=== PATIENT | male | born 1990 | race African-American/Black ===

== ENCOUNTER 2017-12-21 00:04 | Inpatient (IN) ==
[2017-12-21] MEDS ORDERED: SODIUM CHLORIDE 0.9% 500 ML IV STA (00:43)
[2017-12-21] MEDS ORDERED: cefTRIAXone 1,000 MG in SODIUM CHLORIDE 0.9% 100 ML IV STA (00:43)
[2017-12-21] MEDS ORDERED: MORPHINE 2 MG/1 ML SYRINGE IV STA (00:43)
[2017-12-21] MEDS ORDERED: ONDANSETRON ODT 4 MG TABLET PO STA (00:43)
[2017-12-21] MEDS ORDERED: ASPIRIN 325 MG TABLET PO STA (00:43)
[2017-12-21] MEDS ORDERED: ONDANSETRON ODT 4 MG TABLET PO ONE (01:07)
[2017-12-21] MEDS: ALBUTEROL 2.5 MG/3 ML NEB RESP TX SCH ×3 (01:27→02:07)
[2017-12-21] MEDS ORDERED: cefTRIAXone 1,000 MG VIAL ONE (01:39)
[2017-12-21] MEDS ORDERED: ONDANSETRON 4 MG/2 ML VIAL ONE (01:40)
[2017-12-21] MEDS ORDERED: MORPHINE 2 MG/1 ML SYRINGE ONE (01:40)
[2017-12-21] MEDS ORDERED: ASPIRIN 325 MG TABLET ONE (01:40)
[2017-12-21 01:55] LABS: Basophils # 0.1 10*3/uL (0.0-0.2); Basophils % 0.6 % (0.0-0.8); Eosinophils # 0.1 10*3/uL (0.0-0.87); Eosinophils % 0.7 % (0.00-10.9); Hematocrit 23.9 VOL% (42.0-52.0); Hemoglobin 8.5 GM/DL (14.0-18.0); Immature Granulocytes % 0.7 %; Immature Granulocytes Absolute 0.06 #; Lymphocytes # 2.5 10*3/uL (1.4-4.0); Lymphocytes % 30.1 % (21.2-54.2); Mean Corpuscular HGB Conc 35.6 GM/DL (32-36); Mean Corpuscular Hemoglobin 27 PG (27-34); Mean Corpuscular Volume 77.1 FL (87-102); Mean Platelet Volume 11.3 FL (9.6-12.0); Monocytes # 0.5 10*3/uL (0.11-0.8); Monocytes % 6.2 % (1.7-12.7); Neutrophils # 5.2 10*3/uL (1.4-7.4); Neutrophils % 61.7 % (38.7-73.9); Platelet Count 146 T/CUMM (130-400); Red Cell Distribution Width 16.4 % (9.3-17.3); White Blood Count 8.4 T/CUMM (4-12)
[2017-12-21 02:03] LABS: INR 1.2; PT Patient Result 12.7 SECS
[2017-12-21 02:11] LABS: Amorphous Crystals,Urine Occasional /HPF (Few); Apearance,Urine Slightly Hazy (Clear); Bacteria,Urine Occasional /HPF (Few); Bilirubin,Urine Negative (Negative); Blood, Urine Large mg/dL (Negative); Glucose,Urine (UA) Negative (Negative); Ketones,Urine Negative (Negative); Mucus,Urine Occasional /LPF (Occasional); Nitrite,Urine Negative (Negative); Protein,Urine 100 MG/DL; RBC,Urine 424 /HPF (0-4); Squamous Epithelial Cell,Urine Occasional /HPF (0-10); Urine Color Yellow (Yellow); Urine Specific Gravity 1.011 (1.001-1.035); Urine Urobilinogen < 2.0 EU/DL (0.2-1.0); WBC,Urine 5 /HPF (0-6)
[2017-12-21 02:20] LABS: Albumin 2.7 G/DL (3.4-5.0); Bilirubin,Total 0.8 MG/DL (0.2-1.0); Calcium 7.7 MG/DL (8.5-10.1); Osmolality,Calculated 278.1 MOS/KG (273-304); Potassium 4.4 MMOL/L (3.5-5.1); Total Protein 7.1 G/DL (6.4-8.3)
[2017-12-21 02:22] LABS: Troponin I Only 0.135 NG/ML (0.00-0.045)
[2017-12-21] MEDS ORDERED: PIPERACILLIN/TAZOBACTAM 3,375 MG in SODIUM CHLORIDE 0.9% 100 ML IV STA ×2 (03:58→04:14)
[2017-12-21 04:06] LABS: Anisocytosis 1+
[2017-12-21] MEDS ORDERED: guaiFENesin/DM ER 600-30 MG TABLET PO PRN (04:06)
[2017-12-21] MEDS ORDERED: ONDANSETRON 4 MG/2 ML VIAL IV PRN ×2 (04:06→21:17)
[2017-12-21] MEDS ORDERED: ACETAMINOPHEN 325 MG TABLET PO PRN (04:06)
[2017-12-21] MEDS ORDERED: PIPERACILLIN/TAZOBACTAM 3,375 MG VIAL IV ONE (04:10)
[2017-12-21] MEDS ORDERED: SODIUM CHLORIDE 0.9% 100 ML IV ONE ×2 (04:11→21:50)
[2017-12-21] MEDS ORDERED: ALBUTEROL/IPRATROPIUM 3 ML NEB RESP TX PRN (04:16)
[2017-12-21] MEDS ORDERED: SODIUM CHLORIDE 0.9% 1,000 ML IV PRN (04:48)
[2017-12-21] MEDS ORDERED: SODIUM CHLORIDE 0.9% 1,000 ML IV SCH (05:00)
[2017-12-21] MEDS ORDERED: PANTOPRAZOLE 40 MG TABLET PO SCH (09:00)
[2017-12-21] MEDS ORDERED: ASPIRIN EC 81 MG TABLET PO SCH (09:00)
[2017-12-21 09:42] LABS: Barbiturates Screen,Urine Negative (Negative); Benzodiazepines Screen,Urine Negative (Negative); Cannabinoid Screen,Urine Positive (Negative); Opiate Screen,Urine Negative (Negative); Phencyclidine Screen,Urine Negative (Negative)
[2017-12-21] MEDS ORDERED: SODIUM CHLORIDE 0.9% 1,000 ML IV ONE ×2 (10:29→21:50)
[2017-12-21 11:19] LABS: Total Protein 6.8 G/DL (6.4-8.3)
[2017-12-21 11:39] LABS: Fibrinogen Quant Value 286 MG% (200-400); INR 1.2; PT Patient Result 12.5 SECS
[2017-12-21 11:53] LABS: Creatinine,Urine Random 110 MG/DL; Total Protein,Urine Random 94 MG/DL; Urea Nitrogen, Urine Random 563 MG/DL
[2017-12-21] MEDS ORDERED: FUROSEMIDE 100 MG/10 ML VIAL IV ONE (11:57)
[2017-12-21] MEDS ORDERED: methylPREDNISolone SOD SUC 125 MG/2 ML VIAL IV SCH (12:00)
[2017-12-21 12:19] LABS: HIV Antigen/Antibody Result Nonreactive (Nonreactive); Hepatitis B Core Ab Result Negative (Negative); Hepatitis B Surface Ab Result Positive; Hepatitis C Virus Ab Quant 0.18 Index; Hepatitis C Virus Ab Result Negative (Negative)
[2017-12-21] MEDS ORDERED: methylPREDNISolone SOD SUC INJ 1,000 MG in SODIUM CHLORIDE 0.9% 100 ML IV SCH (12:30)
[2017-12-21] MEDS ORDERED: PIPERACILLIN/TAZOBACTAM 3,375 MG in SODIUM CHLORIDE 0.9% 100 ML IV SCH (12:30)
[2017-12-21] MEDS ORDERED: PROPOFOL 1,000 MG/100 ML BOTTLE IV ONE ×2 (13:25→21:47)
[2017-12-21] MEDS ORDERED: ETOMIDATE 20 MG/10 ML VIAL IV ONE (13:34)
[2017-12-21] MEDS ORDERED: LABETALOL 20 MG/4 ML SYRINGE IV ONE (13:51)
[2017-12-21] MEDS ORDERED: CEFUROXIME 1,500 MG VIAL ONE (14:33)
[2017-12-21] MEDS ORDERED: TISSUE ADHESIVE 1 EACH APPLICATOR TOP ONE (14:33)
[2017-12-21] MEDS ORDERED: VANCOMYCIN 1,000 MG VIAL ONE (14:33)
[2017-12-21] MEDS ORDERED: PAPAVERINE 60 MG/2 ML VIAL ONE (14:33)
[2017-12-21 15:00] LABS: ABG Base Excess -3.8 MMOL/L (-2.5-2.5); ABG HCO3 21.2 MMOL/L (20-26); ABG Oxygen Saturation 99.4 % (95-100); ABG PH 7.356 (7.35-7.45); ABG TCO2 19.9 MMOL/L (23-27)
[2017-12-21 15:32] LABS: Apearance,Urine CLOUDY (Clear); Bilirubin,Urine Negative (Negative); Blood, Urine Large mg/dL (Negative); Glucose,Urine (UA) Negative (Negative); Ketones,Urine Negative (Negative); Nitrite,Urine Negative (Negative); Protein,Urine 30 MG/DL; RBC,Urine 215 /HPF (0-4); Squamous Epithelial Cell,Urine Occasional /HPF (0-10); Urine Color Yellow (Yellow); Urine Specific Gravity 1.008 (1.001-1.035); Urine Urobilinogen < 2.0 EU/DL (0.2-1.0)
[2017-12-21 15:50] LABS: ABG Base Excess -5.7 MMOL/L (-2.5-2.5); ABG HCO3 19.6 MMOL/L (20-26); ABG Oxygen Saturation 95.7 % (95-100); ABG PH 7.281 (7.35-7.45); ABG PO2 93.3 MM HG (80-95); ABG TCO2 19.5 MMOL/L (23-27); Glucose Heart Surgery 211 MG/DL (74-106); Hematocrit Heart Surgery 25.8 PERCENT (42-52); Hemoglobin Heart Surgery 8.3 G/DL (14.0-18.0); PH Patient Temp Arterial 7.281; PO2 Patient Temp Arterial 93.3 MM HG; Patient Temperature 37 CELCIUS; Potassium Heart/CVR 5.1 MMOL/L (3.5-5.1); Sodium Heart/CVR 130 MMOL/L (135-145)
[2017-12-21 16:28] LABS: ABG Base Excess -5.8 MMOL/L (-2.5-2.5); ABG HCO3 19.6 MMOL/L (20-26); ABG PCO2 36.6 MM HG (35-48); ABG PH 7.334 (7.35-7.45); ABG TCO2 18.4 MMOL/L (23-27); Glucose Heart Surgery 194 MG/DL (74-106); Hematocrit Heart Surgery 23.9 PERCENT (42-52); Hemoglobin Heart Surgery 7.7 G/DL (14.0-18.0); Ionized Calcium Arterial 1.07 MMOL/L (1.21-1.46); PCO2 Patient Temp Arterial 36.6 MMHG; PH Patient Temp Arterial 7.334; Patient Temperature 37 CELCIUS; Potassium Heart/CVR 5.8 MMOL/L (3.5-5.1); Sodium Heart/CVR 130 MMOL/L (135-145)
[2017-12-21 17:13] LABS: PCO2 Patient Temp Venous 44.1 MM HG; PH Patient Temp Venous 7.324; PO2 Patient Temp Venous 64.8 MM HG; VBG Base Excess -2.8 MEQ/L (0-4); VBG Oxygen Saturation 91.2 %; VBG PCO2 44.1 MMHG (41-51); VBG PH 7.324; VBG PO2 64.8 MMHG (17-40)
[2017-12-21 17:18] LABS: Potassium Heart/CVR 7.4 MMOL/L (3.5-5.1)
[2017-12-21 17:19] LABS: Hematocrit Heart Surgery 17.2 PERCENT (42-52); Hemoglobin Heart Surgery 5.4 G/DL (14.0-18.0)
[2017-12-21] MEDS ORDERED: DEXTROSE 5% KCL 20 MEQ 40 MEQ/2,000 ML BAG IV ONE ×2 (17:26→20:10)
[2017-12-21 17:59] LABS: PCO2 Patient Temp Venous 53.8 MM HG; PH Patient Temp Venous 7.195; PO2 Patient Temp Venous 45.7 MM HG; Patient Temperature 37 CELCIUS; VBG Base Excess -6.8 MEQ/L (0-4); VBG HCO3 18.6 MEQ/L (24-28); VBG Oxygen Saturation 69.6 %; VBG PCO2 53.8 MMHG (41-51); VBG PH 7.195; VBG PO2 45.7 MMHG (17-40)
[2017-12-21 18:00] LABS: Potassium Heart/CVR 7.7 MMOL/L (3.5-5.1); Sodium Heart/CVR 113 MMOL/L (135-145)
[2017-12-21 18:01] LABS: Glucose Heart Surgery > 700 MG/DL (74-106); Hematocrit Heart Surgery 14.1 PERCENT (42-52); Hemoglobin Heart Surgery < 5.0 G/DL (14.0-18.0)
[2017-12-21 18:25] LABS: PCO2 Patient Temp Venous 46.5 MM HG; PH Patient Temp Venous 7.237; PO2 Patient Temp Venous 55.6 MM HG; Patient Temperature 37 CELCIUS; VBG Base Excess -7.1 MEQ/L (0-4); VBG HCO3 18.4 MEQ/L (24-28); VBG Oxygen Saturation 82.3 %; VBG PCO2 46.5 MMHG (41-51); VBG PH 7.237; VBG PO2 55.6 MMHG (17-40)
[2017-12-21 18:27] LABS: Potassium Heart/CVR 6.1 MMOL/L (3.5-5.1); Sodium Heart/CVR 115 MMOL/L (135-145)
[2017-12-21 18:28] LABS: Glucose Heart Surgery > 700 MG/DL (74-106); Hematocrit Heart Surgery 17.9 PERCENT (42-52); Hemoglobin Heart Surgery 5.7 G/DL (14.0-18.0)
[2017-12-21 18:53] LABS: Hematocrit Heart Surgery 20.3 PERCENT (42-52); Hemoglobin Heart Surgery 6.5 G/DL (14.0-18.0); PCO2 Patient Temp Venous 48.4 MM HG; PH Patient Temp Venous 7.329; PO2 Patient Temp Venous 39.4 MM HG; Potassium Heart/CVR 5.6 MMOL/L (3.5-5.1); VBG Base Excess -0.6 MEQ/L (0-4); VBG HCO3 23.6 MEQ/L (24-28); VBG Oxygen Saturation 68.1 %; VBG PCO2 48.4 MMHG (41-51); VBG PH 7.329; VBG PO2 39.4 MMHG (17-40)
[2017-12-21 19:24] LABS: Hematocrit Heart Surgery 22.5 PERCENT (42-52); Hemoglobin Heart Surgery 7.2 G/DL (14.0-18.0); PCO2 Patient Temp Venous 51.8 MM HG; PH Patient Temp Venous 7.261; PO2 Patient Temp Venous 41.7 MM HG; VBG Base Excess -3.8 MEQ/L (0-4); VBG HCO3 20.9 MEQ/L (24-28); VBG Oxygen Saturation 68.5 %; VBG PCO2 51.8 MMHG (41-51); VBG PH 7.261; VBG PO2 41.7 MMHG (17-40)
[2017-12-21 20:02] LABS: ABG Base Excess -3.7 MMOL/L (-2.5-2.5); ABG HCO3 21.8 MMOL/L (20-26); ABG Oxygen Saturation 98.8 % (95-100); ABG PCO2 42.1 MM HG (35-48); ABG PH 7.333 (7.35-7.45); ABG PO2 283.9 MM HG (80-95); ABG TCO2 23.1 MMOL/L (23-27); Glucose Heart Surgery 333 MG/DL (74-106); Hemoglobin Heart Surgery 7.4 G/DL (14.0-18.0); Ionized Calcium Arterial 0.93 MMOL/L (1.21-1.46); Potassium Heart/CVR 4.5 MMOL/L (3.5-5.1); Sodium Heart/CVR 127 MMOL/L (135-145)
[2017-12-21] MEDS ORDERED: SODIUM BICARBONATE 50 MEQ/50 ML SYRINGE IV ONE ×4 (20:10→21:35)
[2017-12-21] MEDS ORDERED: PHENYLEPHRINE DRIP 20 MG/250 ML PREMIX IV ONE ×2 (20:10→21:48)
[2017-12-21] MEDS ORDERED: PROTAMINE SULFATE 250 MG/25 ML VIAL IV ONE (20:10)
[2017-12-21] MEDS ORDERED: ALBUMIN 25% 25 GM/100 ML VIAL IV ONE (20:10)
[2017-12-21] MEDS ORDERED: MAGNESIUM SULFATE 1 GM/2 ML VIAL ONE (20:10)
[2017-12-21] MEDS ORDERED: HEPARIN 10,000 UNIT/10 ML VIAL ONE (20:11)
[2017-12-21] MEDS ORDERED: MANNITOL 12.5 GM/50 ML VIAL IV ONE (20:11)
[2017-12-21] MEDS ORDERED: PROTAMINE SULFATE 50 MG/5 ML VIAL IV ONE (20:11)
[2017-12-21] MEDS ORDERED: methylPREDNISolone SOD SUC 1,000 MG/8 ML VIAL ONE (20:11)
[2017-12-21] MEDS ORDERED: FUROSEMIDE 20 MG/2 ML VIAL ONE (20:11)
[2017-12-21 20:49] LABS: ABG Base Excess -5.6 MMOL/L (-2.5-2.5); ABG HCO3 19.8 MMOL/L (20-26); ABG Oxygen Saturation 97.9 % (95-100); ABG PCO2 47.8 MM HG (35-48); ABG PH 7.259 (7.35-7.45); ABG TCO2 20.3 MMOL/L (23-27); Glucose Heart Surgery 312 MG/DL (74-106); Hematocrit Heart Surgery 24.8 PERCENT (42-52); Ionized Calcium Arterial 0.87 MMOL/L (1.21-1.46); PCO2 Patient Temp Arterial 47.8 MMHG; PH Patient Temp Arterial 7.259; Patient Temperature 37 CELCIUS; Potassium Heart/CVR 4.2 MMOL/L (3.5-5.1); Sodium Heart/CVR 132 MMOL/L (135-145)
[2017-12-21 20:52] LABS: Basophils # 0.1 10*3/uL (0.0-0.2); Basophils % 0.3 % (0.0-0.8); Eosinophils % 0.2 % (0.00-10.9); Hematocrit 23.8 VOL% (42.0-52.0); Hemoglobin 7.7 GM/DL (14.0-18.0); Immature Granulocytes % 3.3 %; Immature Granulocytes Absolute 0.71 #; Lymphocytes # 3.4 10*3/uL (1.4-4.0); Lymphocytes % 15.5 % (21.2-54.2); Mean Corpuscular HGB Conc 32.4 GM/DL (32-36); Mean Corpuscular Hemoglobin 29 PG (27-34); Mean Corpuscular Volume 89.5 FL (87-102); Mean Platelet Volume 11.2 FL (9.6-12.0); Monocytes # 0.5 10*3/uL (0.11-0.8); Monocytes % 2.3 % (1.7-12.7); Neutrophils # 17.1 10*3/uL (1.4-7.4); Neutrophils % 78.4 % (38.7-73.9); Red Blood Count 2.66 MC/CUMM (3.8-5.5); Red Cell Distribution Width 16.6 % (9.3-17.3); White Blood Count 21.7 T/CUMM (4-12)
[2017-12-21 20:53] LABS: Platelet Count 88 T/CUMM (130-400)
[2017-12-21 21:08] LABS: Calcium 6.5 MG/DL (8.5-10.1); Potassium 4.3 MMOL/L (3.5-5.1)
[2017-12-21 21:14] LABS: Band Neutrophils 3 % (0-10); Lymphocytes 11 % (20-55); Segmented Neutrophils 83 % (50-85); Total Cells Counted 100
[2017-12-21 21:15] LABS: Anisocytosis 1+; Hypochromasia 1+; Platelet Estimate Decreased
[2017-12-21] MEDS ORDERED: PHENYLEPHRINE DRIP 40 MG/250 ML PREMIX IV SCH (21:15)
[2017-12-21] MEDS ORDERED: ALBUMIN 5% 12.5 GM in PREMIX 1 EACH IV PRN (21:17)
[2017-12-21] MEDS ORDERED: POTASSIUM CHLORIDE RIDER 20 MEQ in PREMIX 1 EACH IV PRN (21:17)
[2017-12-21] MEDS ORDERED: CHLORHEXIDINE 4% SOLN 118 ML BOTTLE TOP PRN (21:17)
[2017-12-21] MEDS ORDERED: ACETAMINOPHEN 650 MG SUPP RECTAL PRN (21:17)
[2017-12-21] MEDS ORDERED: MAGNESIUM SULF RIDER 4 GM in PREMIX 1 EACH IV PRN (21:17)
[2017-12-21] MEDS ORDERED: POTASSIUM CHLORIDE RIDER 10 MEQ in PREMIX 1 EACH IV PRN (21:17)
[2017-12-21] MEDS ORDERED: CALCIUM CHLORIDE 1,000 MG/10 ML SYRINGE IV PRN (21:17)
[2017-12-21] MEDS ORDERED: INSULIN REGULAR 100 UNIT/ML IV ONE (21:17)
[2017-12-21] MEDS ORDERED: MIDAZOLAM 2 MG/2 ML VIAL IV PRN (21:17)
[2017-12-21] MEDS ORDERED: INSULIN REGULAR 100 UNIT/ML IV PRN (21:17)
[2017-12-21] MEDS ORDERED: MAGNESIUM SULF RIDER 2 GM in PREMIX 1 EACH IV PRN (21:17)
[2017-12-21] MEDS ORDERED: DEXTROSE 50% 25 GM/50 ML VIAL IV PRN ×2 (21:17)
[2017-12-21] MEDS ORDERED: PHENYLEPHRINE DRIP 40 MG/250 ML PREMIX IV ONE (21:20)
[2017-12-21] MEDS ORDERED: SODIUM CHLORIDE 0.45% 1,000 ML IV SCH ×2 (21:30)
[2017-12-21 21:35] LABS: ABG Base Excess -3.8 MMOL/L (-2.5-2.5); ABG HCO3 21.3 MMOL/L (20-26); ABG Oxygen Saturation 98.5 % (95-100); ABG PH 7.273 (7.35-7.45); ABG TCO2 21.9 MMOL/L (23-27); Glucose Heart Surgery 243 MG/DL (74-106); Hematocrit Heart Surgery 24.1 PERCENT (42-52); Hemoglobin Heart Surgery 7.7 G/DL (14.0-18.0); Potassium Heart/CVR 3.8 MMOL/L (3.5-5.1)
[2017-12-21 21:37] LABS: Basophils # 0.1 10*3/uL (0.0-0.2); Basophils % 0.3 % (0.0-0.8); Eosinophils % 0.1 % (0.00-10.9); Hematocrit 24.5 VOL% (42.0-52.0); Hemoglobin 8.1 GM/DL (14.0-18.0); Immature Granulocytes % 2.7 %; Immature Granulocytes Absolute 0.52 #; Lymphocytes # 2.8 10*3/uL (1.4-4.0); Lymphocytes % 14.7 % (21.2-54.2); Mean Corpuscular HGB Conc 33.1 GM/DL (32-36); Mean Corpuscular Hemoglobin 30 PG (27-34); Mean Corpuscular Volume 89.1 FL (87-102); Mean Platelet Volume 10.6 FL (9.6-12.0); Monocytes # 1.1 10*3/uL (0.11-0.8); Monocytes % 5.6 % (1.7-12.7); Neutrophils # 14.6 10*3/uL (1.4-7.4); Neutrophils % 76.6 % (38.7-73.9); Platelet Count 127 T/CUMM (130-400); Red Blood Count 2.75 MC/CUMM (3.8-5.5); Red Cell Distribution Width 16.3 % (9.3-17.3)
[2017-12-21] MEDS: SODIUM CHLORIDE 0.9% 250 ML IV PRN ×4 (21:39→22:41)
[2017-12-21] MEDS ORDERED: KETAMINE 500 MG/10 ML VIAL ONE (21:42)
[2017-12-21 21:46] LABS: INR 1.6; PT Patient Result 16.4 SECS
[2017-12-21] MEDS ORDERED: SEVOFLURANE 1 UNIT/15 MINUTE INH ONE (21:48)
[2017-12-21] MEDS ORDERED: SUFentanil 250 MCG/5 ML AMP ONE (21:48)
[2017-12-21] MEDS ORDERED: CALCIUM CHLORIDE 1,000 MG/10 ML VIAL IV ONE (21:48)
[2017-12-21] MEDS ORDERED: TRANEXAMIC ACID 1,000 MG/10 ML VIAL IV ONE (21:49)
[2017-12-21] MEDS ORDERED: MIDAZOLAM 10 MG/2 ML VIAL ONE (21:49)
[2017-12-21] MEDS ORDERED: EPINEPHrine 1 MG/ML VIAL ONE (21:49)
[2017-12-21] MEDS ORDERED: VECURONIUM 10 MG VIAL IV ONE (21:50)
[2017-12-21] MEDS ORDERED: LACTATED RINGERS 1,000 ML IV ONE (21:50)
[2017-12-21] MEDS ORDERED: NITROGLYCERIN DRIP 50 MG/250 ML BOTTLE IV ONE (21:50)
[2017-12-21] MEDS ORDERED: INSULIN REGULAR DRIP 100 ML IV SCH (22:00)
[2017-12-21] MEDS: SODIUM BICARB INJ 50 MEQ in SODIUM CHLORIDE 0.45% 1,000 ML IV SCH (22:00)
[2017-12-21] MEDS ORDERED: CALCIUM GLUCONATE 2,000 MG in SODIUM CHLORIDE 0.9% 100 ML IV ONE (22:28)
[2017-12-21 22:30] LABS: Lactic Acid 5.3 MMOL/L (0.4-2.0)
[2017-12-21 22:39] LABS: Blood Urea Nitrogen 33 MG/DL (7-18); Calcium 6.1 MG/DL (8.5-10.1); Glucose 246 MG/DL (74-106); Magnesium 2.3 MG/DL (1.8-2.4); Osmolality,Calculated 289.7 MOS/KG (273-304); Potassium 4.2 MMOL/L (3.5-5.1); Sodium 138 MMOL/L (136-145)
[2017-12-21 22:41] LABS: ABG Base Excess -3.8 MMOL/L (-2.5-2.5); ABG Oxygen Saturation 98.5 % (95-100); ABG PCO2 43.1 MM HG (35-48); ABG PH 7.326 (7.35-7.45); ABG PO2 257.3 MM HG (80-95); ABG TCO2 23.3 MMOL/L (23-27); Glucose Heart Surgery 222 MG/DL (74-106); Hemoglobin Heart Surgery 10.1 G/DL (14.0-18.0); Potassium Heart/CVR 4.1 MMOL/L (3.5-5.1)
[2017-12-22 00:19] LABS: ABG Base Excess -1.6 MMOL/L (-2.5-2.5); ABG HCO3 23.2 MMOL/L (20-26); ABG Oxygen Saturation 98.1 % (95-100); ABG PCO2 39.5 MM HG (35-48); ABG PH 7.387 (7.35-7.45); ABG PO2 141.3 MM HG (80-95); ABG TCO2 24.4 MMOL/L (23-27); Glucose Heart Surgery 185 MG/DL (74-106); Hemoglobin Heart Surgery 10.4 G/DL (14.0-18.0); Potassium Heart/CVR 4.3 MMOL/L (3.5-5.1)
[2017-12-22 02:35] LABS: Lactic Acid 2.7 MMOL/L (0.4-2.0)
[2017-12-22] MEDS: MORPHINE 2 MG/1 ML SYRINGE IV PRN ×4 (02:55→22:13)
[2017-12-22] MEDS: CEFUROXIME INJ 1,500 MG in SYRINGE 1 EACH IV SCH ×2 (02:58→15:03)
[2017-12-22 04:25] LABS: ABG Base Excess 2.5 MMOL/L (-2.5-2.5); ABG HCO3 25.2 MMOL/L (20-26); ABG Oxygen Saturation 98.6 % (95-100); ABG PCO2 32.1 MM HG (35-48); ABG PH 7.512 (7.35-7.45); ABG PO2 263.2 MM HG (80-95); ABG TCO2 26.1 MMOL/L (23-27); Glucose Heart Surgery 114 MG/DL (74-106); Hemoglobin Heart Surgery 10.5 G/DL (14.0-18.0)
[2017-12-22 04:27] LABS: Potassium Heart/CVR 6.4 MMOL/L (3.5-5.1)
[2017-12-22 04:31] LABS: Basophils % 0.2 % (0.0-0.8); Hematocrit 28.3 VOL% (42.0-52.0); Hemoglobin 9.8 GM/DL (14.0-18.0); Immature Granulocytes % 1.4 %; Immature Granulocytes Absolute 0.22 #; Lymphocytes # 2.1 10*3/uL (1.4-4.0); Lymphocytes % 12.9 % (21.2-54.2); Mean Corpuscular HGB Conc 34.6 GM/DL (32-36); Mean Corpuscular Hemoglobin 29 PG (27-34); Mean Corpuscular Volume 84.7 FL (87-102); Mean Platelet Volume 10.6 FL (9.6-12.0); Monocytes # 0.7 10*3/uL (0.11-0.8); Monocytes % 4.5 % (1.7-12.7); Neutrophils # 13.1 10*3/uL (1.4-7.4); Platelet Count 131 T/CUMM (130-400); Red Blood Count 3.34 MC/CUMM (3.8-5.5); Red Cell Distribution Width 15.3 % (9.3-17.3); White Blood Count 16.2 T/CUMM (4-12)
[2017-12-22 04:54] LABS: Magnesium 2.1 MG/DL (1.8-2.4); Osmolality,Calculated 280.2 MOS/KG (273-304)
[2017-12-22 04:58] LABS: Hypochromasia 1+; Microcytosis Slight; Platelet Estimate Adequate
[2017-12-22] MEDS: PROPOFOL 1,000 MG/100 ML BOTTLE IV SCH (05:00)
[2017-12-22 05:01] LABS: Potassium 6.3 MMOL/L (3.5-5.1)
[2017-12-22 05:11] LABS: ABG Base Excess 1.5 MMOL/L (-2.5-2.5); ABG HCO3 25.5 MMOL/L (20-26); ABG Oxygen Saturation 98.5 % (95-100); ABG PH 7.445 (7.35-7.45); ABG PO2 258.6 MM HG (80-95); ABG TCO2 26.7 MMOL/L (23-27); Glucose Heart Surgery 127 MG/DL (74-106); Hemoglobin Heart Surgery 10.6 G/DL (14.0-18.0)
[2017-12-22 05:14] LABS: Potassium Heart/CVR 6.7 MMOL/L (3.5-5.1)
[2017-12-22] MEDS ORDERED: CALCIUM CHLORIDE 1,000 MG/10 ML SYRINGE IV ONE (05:18)
[2017-12-22] MEDS ORDERED: FUROSEMIDE 40 MG/4 ML VIAL IV ONE ×3 (05:18→08:46)
[2017-12-22] MEDS ORDERED: FUROSEMIDE 100 MG/10 ML VIAL ONE (05:19)
[2017-12-22] MEDS ORDERED: INSULIN REGULAR 100 UNIT/ML IV ONE (05:19)
[2017-12-22 06:33] LABS: ABG Base Excess 1.3 MMOL/L (-2.5-2.5); ABG HCO3 25.6 MMOL/L (20-26); ABG Oxygen Saturation 99.9 % (95-100); ABG PCO2 40.5 MM HG (35-48); ABG PH 7.413 (7.35-7.45); ABG TCO2 23.7 MMOL/L (23-27); Glucose Heart Surgery 187 MG/DL (74-106); Hematocrit Heart Surgery 29.3 PERCENT (42-52); Hemoglobin Heart Surgery 9.5 G/DL (14.0-18.0); Potassium Heart/CVR 5.2 MMOL/L (3.5-5.1)
[2017-12-22] MEDS ORDERED: SODIUM POLYSTYRENE SULFATE 15 GM/60 ML BOTTLE PO ONE (06:44)
[2017-12-22 08:17] LABS: Total Protein (Chem) 6.8 G/DL (6.4-8.3)
[2017-12-22 08:18] LABS: INR 1.2; PT Patient Result 12.6 SECS; Partial Thromboplastin Time 28.1 SECS (0-40)
[2017-12-22] MEDS ORDERED: VANCOMYCIN INJ 1,000 MG in SODIUM CHLORIDE 0.9% 250 ML IV ONE (08:38)
[2017-12-22 09:01] LABS: Random Urine Protein (Bench) 94 MG/DL (<11.9)
[2017-12-22] MEDS: METOPROLOL TARTRATE 25 MG TABLET PO SCH ×2 (10:50→21:57)
[2017-12-22 11:05] LABS: ABG Base Excess 1.2 MMOL/L (-2.5-2.5); ABG HCO3 24.9 MMOL/L (20-26); ABG Oxygen Saturation 98.4 % (95-100); ABG PH 7.458 (7.35-7.45); ABG PO2 184.2 MM HG (80-95); Glucose Heart Surgery 170 MG/DL (74-106); Hemoglobin Heart Surgery 9.3 G/DL (14.0-18.0); Potassium Heart/CVR 5.8 MMOL/L (3.5-5.1)
[2017-12-22] MEDS ORDERED: AMPICILLIN/SULBACTAM 3,000 MG in SODIUM CHLORIDE 0.9% 100 ML IV SCH (12:00)
[2017-12-22] MEDS: MORPHINE 10 MG/1 ML VIAL IV PRN ×2 (12:14→19:07)
[2017-12-22] MEDS: SODIUM BICARB INJ 50 MEQ in SODIUM CHLORIDE 0.45% 1,000 ML IV SCH ×3 (12:43→22:15)
[2017-12-22 12:49] LABS: Calcium 7.8 MG/DL (8.5-10.1); Osmolality,Calculated 285.1 MOS/KG (273-304); Potassium 4.8 MMOL/L (3.5-5.1)
[2017-12-22] MEDS: INSULIN REGULAR 100 UNIT/ML SUBCUT SCH ×3 (13:14→21:54)
[2017-12-22 13:22] LABS: Albumin (SPE) 3.1 G/DL (3.2-5.3); Albumin (SPE) Rel % 44.9 %; Alpha 1 (SPE) 0.4 G/DL (0.1-0.4); Alpha 1 (SPE) Rel % 4.8 %; Alpha 2 (SPE) 0.6 G/DL (0.4-1.0); Beta (SPE) 0.6 G/DL (0.5-1.1); Beta (SPE) Rel % 8.4 %; Gamma (SPE) 2.2 G/DL (0.7-1.7); Gamma (SPE) Rel % 32.9 %
[2017-12-22] MEDS: AMPICILLIN/SULBACTAM 3,000 MG in SODIUM CHLORIDE 0.9% 100 ML IV SCH ×2 (13:54→23:41)
[2017-12-22] MEDS ORDERED: INSULIN REGULAR 100 UNIT/ML SUBCUT SCH (14:00)
[2017-12-22] MEDS: CIPROFLOXACIN INJ 400 MG in PREMIX 1 EACH IV SCH (14:20)
[2017-12-22 15:51] LABS: ABG Base Excess 1.7 MMOL/L (-2.5-2.5); ABG HCO3 25.9 MMOL/L (20-26); ABG Oxygen Saturation 94.2 % (95-100); ABG PCO2 40.9 MM HG (35-48); ABG PH 7.416 (7.35-7.45); ABG PO2 70.8 MM HG (80-95); ABG TCO2 24.7 MMOL/L (23-27); Glucose Heart Surgery 242 MG/DL (74-106); Hematocrit Heart Surgery 22.8 PERCENT (42-52); Hemoglobin Heart Surgery 7.3 G/DL (14.0-18.0); Potassium Heart/CVR 4.4 MMOL/L (3.5-5.1)
[2017-12-22] MEDS ORDERED: SODIUM CHLORIDE 0.9% 1,000 ML IV PRN ×2 (16:05→20:01)
[2017-12-22] MEDS: CHLORHEXIDINE 0.12% ORAL RINSE 60 ML BOTTLE SWISH/SPIT SCH ×2 (17:33→21:57)
[2017-12-22 17:38] LABS: INR 1.2; PT Patient Result 12.3 SECS; Partial Thromboplastin Time 27.3 SECS (0-40)
[2017-12-22] MEDS ORDERED: ASPIRIN EC 325 MG TABLET PO SCH (21:17)
[2017-12-22] MEDS: FUROSEMIDE 40 MG TABLET PO SCH (21:56)
[2017-12-22] MEDS: ATORVASTATIN 40 MG TABLET PO SCH (21:56)
[2017-12-23] MEDS: INSULIN REGULAR 100 UNIT/ML SUBCUT SCH ×6 (01:05→21:03)
[2017-12-23] MEDS ORDERED: CEFUROXIME INJ 1,500 MG in SYRINGE 1 EACH IV SCH (04:00)
[2017-12-23] MEDS: CEFUROXIME INJ 1,500 MG in SYRINGE 1 EACH IV SCH (04:05)
[2017-12-23 05:09] LABS: Magnesium 1.9 MG/DL (1.8-2.4); Osmolality,Calculated 276.5 MOS/KG (273-304); Potassium 5.2 MMOL/L (3.5-5.1)
[2017-12-23] MEDS: PROPOFOL 1,000 MG/100 ML BOTTLE IV SCH (06:00)
[2017-12-23 06:50] LABS: Basophils % 0.1 % (0.0-0.8); Hemoglobin 8.7 GM/DL (14.0-18.0); Immature Granulocytes % 0.9 %; Immature Granulocytes Absolute 0.16 #; Lymphocytes # 1.5 10*3/uL (1.4-4.0); Lymphocytes % 8.6 % (21.2-54.2); Mean Corpuscular HGB Conc 34.8 GM/DL (32-36); Mean Corpuscular Hemoglobin 30 PG (27-34); Mean Corpuscular Volume 86.2 FL (87-102); Mean Platelet Volume 11.6 FL (9.6-12.0); Monocytes # 1.4 10*3/uL (0.11-0.8); Monocytes % 8.1 % (1.7-12.7); Neutrophils # 14.5 10*3/uL (1.4-7.4); Neutrophils % 82.3 % (38.7-73.9); Platelet Count 221 T/CUMM (130-400); Red Cell Distribution Width 15.1 % (9.3-17.3); White Blood Count 17.6 T/CUMM (4-12)
[2017-12-23] MEDS ORDERED: FUROSEMIDE INJ 160 MG in SODIUM CHLORIDE 0.9% 50 ML IV ONE (06:52)
[2017-12-23] MEDS: SODIUM BICARB INJ 50 MEQ in SODIUM CHLORIDE 0.45% 1,000 ML IV SCH (07:08)
[2017-12-23 08:20] LABS: Immuno Free Light Chain Lambda 7.94 MG/DL (0.57-2.63); Immuno Free Light Chain Ratio 1.32 MG/DL (0.26-1.65)
[2017-12-23] MEDS: METOPROLOL TARTRATE 25 MG TABLET PO SCH ×2 (09:27→21:03)
[2017-12-23] MEDS: FUROSEMIDE 40 MG TABLET PO SCH (09:27)
[2017-12-23] MEDS: CHLORHEXIDINE 0.12% ORAL RINSE 60 ML BOTTLE SWISH/SPIT SCH ×2 (09:31→21:04)
[2017-12-23 10:33] LABS: Double Stranded DNA Antibodies < 25.0 IU/ML
[2017-12-23] MEDS ORDERED: CALCIUM GLUCONATE 1,000 MG in SODIUM CHLORIDE 0.9% 100 ML IV ONE (11:30)
[2017-12-23] MEDS: AMPICILLIN/SULBACTAM 3,000 MG in SODIUM CHLORIDE 0.9% 100 ML IV SCH (11:32)
[2017-12-23 15:07] LABS: Glomerular Basement Membrane A < 0.2 U; Myeloperoxidase Antibodies <0.2 U
[2017-12-23] MEDS: CIPROFLOXACIN INJ 400 MG in PREMIX 1 EACH IV SCH (15:32)
[2017-12-23] MEDS: ATORVASTATIN 40 MG TABLET PO SCH (21:03)
[2017-12-23] MEDS: MORPHINE 2 MG/1 ML SYRINGE IV PRN (21:10)
[2017-12-24] MEDS: INSULIN REGULAR 100 UNIT/ML SUBCUT SCH ×6 (00:30→22:15)
[2017-12-24] MEDS: SODIUM BICARB INJ 50 MEQ in SODIUM CHLORIDE 0.45% 1,000 ML IV SCH (00:34)
[2017-12-24] MEDS: AMPICILLIN/SULBACTAM 3,000 MG in SODIUM CHLORIDE 0.9% 100 ML IV SCH ×2 (00:40→12:33)
[2017-12-24 05:17] LABS: Basophils % 0.1 % (0.0-0.8); Hematocrit 25.8 VOL% (42.0-52.0); Immature Granulocytes % 3.3 %; Lymphocytes % 14.1 % (21.2-54.2); Mean Corpuscular HGB Conc 34.9 GM/DL (32-36); Mean Corpuscular Hemoglobin 30 PG (27-34); Mean Corpuscular Volume 86.9 FL (87-102); Mean Platelet Volume 11.4 FL (9.6-12.0); Monocytes # 1.8 10*3/uL (0.11-0.8); Monocytes % 8.7 % (1.7-12.7); Neutrophils # 15.4 10*3/uL (1.4-7.4); Neutrophils % 73.8 % (38.7-73.9); Platelet Count 254 T/CUMM (130-400); Red Blood Count 2.97 MC/CUMM (3.8-5.5); Red Cell Distribution Width 15.2 % (9.3-17.3); White Blood Count 20.9 T/CUMM (4-12)
[2017-12-24 05:23] LABS: INR 1.1; PT Patient Result 11.7 SECS
[2017-12-24 05:53] LABS: Hypochromasia 1+; Lymphocytes 10 % (20-55); Platelet Estimate Adequate; Segmented Neutrophils 83 % (50-85); Total Cells Counted 100
[2017-12-24 05:54] LABS: Giant Platelets Few; Microcytosis Slight
[2017-12-24 05:59] LABS: Calcium 7.2 MG/DL (8.5-10.1); Magnesium 1.9 MG/DL (1.8-2.4); Osmolality,Calculated 277.4 MOS/KG (273-304)
[2017-12-24] MEDS: FUROSEMIDE 40 MG TABLET PO SCH (08:37)
[2017-12-24] MEDS: METOPROLOL TARTRATE 25 MG TABLET PO SCH ×2 (08:37→21:26)
[2017-12-24] MEDS: CHLORHEXIDINE 0.12% ORAL RINSE 60 ML BOTTLE SWISH/SPIT SCH ×2 (08:38→21:27)
[2017-12-24 09:06] LABS: Cryofibrinogen, P Negative (Negative)
[2017-12-24] MEDS: MORPHINE 2 MG/1 ML SYRINGE IV PRN (09:56)
[2017-12-24] MEDS: CIPROFLOXACIN INJ 400 MG in PREMIX 1 EACH IV SCH (12:29)
[2017-12-24] MEDS: ALUMINUM/MAGNES/SIMETH MAX STR 30 ML UDCUP PO PRN (18:18)
[2017-12-24] MEDS: DOCUSATE SODIUM 100 MG CAPSULE PO SCH (21:26)
[2017-12-24] MEDS: ATORVASTATIN 40 MG TABLET PO SCH (21:26)
[2017-12-24] MEDS ORDERED: POLYETHYLENE GLYCOL POWDER 17 GM PACK PO ONE (21:30)
[2017-12-25] MEDS: INSULIN REGULAR 100 UNIT/ML SUBCUT SCH ×6 (00:18→22:26)
[2017-12-25] MEDS: AMPICILLIN/SULBACTAM 3,000 MG in SODIUM CHLORIDE 0.9% 100 ML IV SCH ×2 (00:20→12:26)
[2017-12-25 05:51] LABS: Basophils % 0.1 % (0.0-0.8); Eosinophils # 0.1 10*3/uL (0.0-0.87); Eosinophils % 0.3 % (0.00-10.9); Hematocrit 28.3 VOL% (42.0-52.0); Hemoglobin 9.3 GM/DL (14.0-18.0); Immature Granulocytes % 3.9 %; Lymphocytes # 3.9 10*3/uL (1.4-4.0); Lymphocytes % 16.6 % (21.2-54.2); Mean Corpuscular HGB Conc 32.9 GM/DL (32-36); Mean Corpuscular Hemoglobin 30 PG (27-34); Mean Corpuscular Volume 91.9 FL (87-102); Mean Platelet Volume 10.9 FL (9.6-12.0); Monocytes # 1.9 10*3/uL (0.11-0.8); Monocytes % 8.3 % (1.7-12.7); NRBC # 0.03 10*3/uL; Neutrophils # 16.4 10*3/uL (1.4-7.4); Neutrophils % 70.8 % (38.7-73.9); Platelet Count 286 T/CUMM (130-400); Red Blood Count 3.08 MC/CUMM (3.8-5.5); Red Cell Distribution Width 15.3 % (9.3-17.3); White Blood Count 23.2 T/CUMM (4-12)
[2017-12-25 06:13] LABS: INR 1.1
[2017-12-25 06:22] LABS: Calcium 7.7 MG/DL (8.5-10.1); Osmolality,Calculated 285.8 MOS/KG (273-304); Potassium 4.4 MMOL/L (3.5-5.1)
[2017-12-25 06:34] LABS: Giant Platelets Few; Hypochromasia 1+; Lymphocytes 16 % (20-55); Platelet Estimate Adequate; Segmented Neutrophils 74 % (50-85); Total Cells Counted 100
[2017-12-25 06:35] LABS: Microcytosis Slight
[2017-12-25] MEDS ORDERED: DIAZEPAM 5 MG TABLET PO ONE ×2 (08:17→08:46)
[2017-12-25] MEDS ORDERED: DESMOPRESSIN 4 MCG/1 ML AMP IV ONE (09:30)
[2017-12-25] MEDS ORDERED: DESMOPRESSIN INJ 20 MCG in SODIUM CHLORIDE 0.9% 50 ML IV ONE (10:00)
[2017-12-25] MEDS: FUROSEMIDE 40 MG TABLET PO SCH (10:53)
[2017-12-25] MEDS: DOCUSATE SODIUM 100 MG CAPSULE PO SCH ×2 (10:53→22:26)
[2017-12-25] MEDS: METOPROLOL SUCCINATE XL 25 MG TABLET PO SCH (10:53)
[2017-12-25] MEDS: CHLORHEXIDINE 0.12% ORAL RINSE 60 ML BOTTLE SWISH/SPIT SCH ×2 (10:55→21:31)
[2017-12-25] MEDS ORDERED: LIDOCAINE 2% 20 ML VIAL ONE (11:18)
[2017-12-25] MEDS: CIPROFLOXACIN INJ 400 MG in PREMIX 1 EACH IV SCH (12:25)
[2017-12-25] MEDS: ATORVASTATIN 40 MG TABLET PO SCH (21:25)
[2017-12-26] MEDS: AMPICILLIN/SULBACTAM 3,000 MG in SODIUM CHLORIDE 0.9% 100 ML IV SCH ×3 (00:13→23:58)
[2017-12-26] MEDS: INSULIN REGULAR 100 UNIT/ML SUBCUT SCH ×6 (01:02→21:31)
[2017-12-26 05:12] LABS: Basophils % 0.2 % (0.0-0.8); Eosinophils # 0.2 10*3/uL (0.0-0.87); Hematocrit 24.7 VOL% (42.0-52.0); Hemoglobin 8.4 GM/DL (14.0-18.0); Immature Granulocytes % 3.5 %; Immature Granulocytes Absolute 0.73 #; Lymphocytes # 4.4 10*3/uL (1.4-4.0); Lymphocytes % 21.1 % (21.2-54.2); Mean Corpuscular Hemoglobin 30 PG (27-34); Mean Corpuscular Volume 89.5 FL (87-102); Mean Platelet Volume 10.7 FL (9.6-12.0); Monocytes # 1.6 10*3/uL (0.11-0.8); Monocytes % 7.6 % (1.7-12.7); Neutrophils # 13.9 10*3/uL (1.4-7.4); Neutrophils % 66.6 % (38.7-73.9); Platelet Count 261 T/CUMM (130-400); Red Blood Count 2.76 MC/CUMM (3.8-5.5); Red Cell Distribution Width 15.5 % (9.3-17.3); White Blood Count 20.8 T/CUMM (4-12)
[2017-12-26 05:22] LABS: INR 1.1; PT Patient Result 11.9 SECS
[2017-12-26 05:41] LABS: Calcium 7.8 MG/DL (8.5-10.1); Magnesium 1.8 MG/DL (1.8-2.4); Osmolality,Calculated 278.2 MOS/KG (273-304); Potassium 4.6 MMOL/L (3.5-5.1)
[2017-12-26 06:38] LABS: Band Neutrophils 1 % (0-10); Lymphocytes 32 % (20-55); Platelet Estimate Normal; Segmented Neutrophils 61 % (50-85); Total Cells Counted 100
[2017-12-26] MEDS ORDERED: SODIUM CHLORIDE 0.9% 1,000 ML IV PRN (07:02)
[2017-12-26] MEDS: METOPROLOL SUCCINATE XL 25 MG TABLET PO SCH (08:46)
[2017-12-26] MEDS: DOCUSATE SODIUM 100 MG CAPSULE PO SCH ×2 (08:47→21:30)
[2017-12-26] MEDS: FUROSEMIDE 40 MG TABLET PO SCH (08:47)
[2017-12-26] MEDS: CHLORHEXIDINE 0.12% ORAL RINSE 60 ML BOTTLE SWISH/SPIT SCH ×2 (13:35→21:31)
[2017-12-26] MEDS: CIPROFLOXACIN INJ 400 MG in PREMIX 1 EACH IV SCH (13:36)
[2017-12-26] MEDS ORDERED: LIDOCAINE 2% 20 ML VIAL ONE (15:46)
[2017-12-26] MEDS: ATORVASTATIN 40 MG TABLET PO SCH (21:30)
[2017-12-26] MEDS: ALUMINUM/MAGNES/SIMETH MAX STR 30 ML UDCUP PO PRN (21:30)
[2017-12-27] MEDS: INSULIN REGULAR 100 UNIT/ML SUBCUT SCH ×6 (00:06→21:33)
[2017-12-27 05:09] LABS: Basophils # 0.1 10*3/uL (0.0-0.2); Basophils % 0.4 % (0.0-0.8); Eosinophils # 0.4 10*3/uL (0.0-0.87); Eosinophils % 1.4 % (0.00-10.9); Hematocrit 32.6 VOL% (42.0-52.0); Hemoglobin 11.2 GM/DL (14.0-18.0); Immature Granulocytes % 4.2 %; Immature Granulocytes Absolute 1.24 #; Lymphocytes % 16.9 % (21.2-54.2); Mean Corpuscular HGB Conc 34.4 GM/DL (32-36); Mean Corpuscular Hemoglobin 30 PG (27-34); Mean Corpuscular Volume 88.1 FL (87-102); Mean Platelet Volume 10.7 FL (9.6-12.0); Monocytes # 2.9 10*3/uL (0.11-0.8); Monocytes % 9.8 % (1.7-12.7); Neutrophils # 19.6 10*3/uL (1.4-7.4); Neutrophils % 67.3 % (38.7-73.9); Platelet Count 359 T/CUMM (130-400); Red Cell Distribution Width 15.1 % (9.3-17.3); White Blood Count 29.2 T/CUMM (4-12)
[2017-12-27 05:25] LABS: Calcium 8.2 MG/DL (8.5-10.1); Magnesium 1.9 MG/DL (1.8-2.4); Osmolality,Calculated 273.5 MOS/KG (273-304); Potassium 4.8 MMOL/L (3.5-5.1)
[2017-12-27 05:52] LABS: Eosinophils 1 % (0-10); Giant Platelets Few; Hypochromasia 1+; Lymphocytes 17 % (20-55); Microcytosis Slight; Platelet Estimate Adequate; Segmented Neutrophils 71 % (50-85); Total Cells Counted 100
[2017-12-27] MEDS: DOCUSATE SODIUM 100 MG CAPSULE PO SCH ×2 (09:05→21:33)
[2017-12-27] MEDS: METOPROLOL SUCCINATE XL 25 MG TABLET PO SCH (09:05)
[2017-12-27] MEDS: FUROSEMIDE 40 MG TABLET PO SCH (09:06)
[2017-12-27] MEDS: CHLORHEXIDINE 0.12% ORAL RINSE 60 ML BOTTLE SWISH/SPIT SCH ×2 (12:11→21:33)
[2017-12-27] MEDS: GENTAMICIN INJ 130 MG in SODIUM CHLORIDE 0.9% 100 ML IV SCH (12:12)
[2017-12-27] MEDS: AMPICILLIN/SULBACTAM 3,000 MG in SODIUM CHLORIDE 0.9% 100 ML IV SCH ×2 (12:13→23:58)
[2017-12-27] MEDS: CIPROFLOXACIN INJ 400 MG in PREMIX 1 EACH IV SCH (15:04)
[2017-12-27] MEDS ORDERED: METOPROLOL SUCCINATE XL 25 MG TABLET PO SCH (15:58)
[2017-12-27] MEDS: HEPARIN DRIP 25,000 UNITS/500 ML PREMIX IV SCH (17:25)
[2017-12-27] MEDS: ATORVASTATIN 40 MG TABLET PO SCH (21:33)
[2017-12-27] MEDS: WARFARIN 5 MG TABLET PO SCH (21:33)
[2017-12-27] MEDS: BENZONATATE 100 MG CAPSULE PO PRN (21:36)
[2017-12-28] MEDS: GENTAMICIN INJ 130 MG in SODIUM CHLORIDE 0.9% 100 ML IV SCH ×2 (00:30→15:45)
[2017-12-28] MEDS: INSULIN REGULAR 100 UNIT/ML SUBCUT SCH ×7 (00:58→23:48)
[2017-12-28] MEDS ORDERED: DEXTROSE 5% IV ONE (01:00)
[2017-12-28] MEDS ORDERED: AMIODARONE IV ONE (01:00)
[2017-12-28] MEDS ORDERED: AMIODARONE INJ 450 MG in DEXTROSE 5% 241 ML IV SCH (01:00)
[2017-12-28] MEDS: HEPARIN 5,000 UNIT/1 ML VIAL IV PRN ×2 (01:38→10:19)
[2017-12-28 06:05] LABS: Basophils # 0.1 10*3/uL (0.0-0.2); Basophils % 0.3 % (0.0-0.8); Eosinophils # 0.5 10*3/uL (0.0-0.87); Eosinophils % 1.9 % (0.00-10.9); Hematocrit 30.1 VOL% (42.0-52.0); Immature Granulocytes % 3.8 %; Immature Granulocytes Absolute 0.91 #; Lymphocytes # 4.9 10*3/uL (1.4-4.0); Lymphocytes % 20.9 % (21.2-54.2); Mean Corpuscular HGB Conc 33.2 GM/DL (32-36); Mean Corpuscular Hemoglobin 29 PG (27-34); Mean Corpuscular Volume 88.3 FL (87-102); Mean Platelet Volume 10.2 FL (9.6-12.0); Monocytes # 2.6 10*3/uL (0.11-0.8); Monocytes % 10.9 % (1.7-12.7); Neutrophils # 14.7 10*3/uL (1.4-7.4); Neutrophils % 62.2 % (38.7-73.9); Platelet Count 280 T/CUMM (130-400); Red Blood Count 3.41 MC/CUMM (3.8-5.5); White Blood Count 23.6 T/CUMM (4-12)
[2017-12-28 06:12] LABS: INR 1.2; PT Patient Result 12.9 SECS
[2017-12-28 07:08] LABS: Band Neutrophils 3 % (0-10); Eosinophils 3 % (0-10); Giant Platelets Few; Hypochromasia 1+; Lymphocytes 10 % (20-55); Microcytosis Slight; Platelet Estimate Adequate; Segmented Neutrophils 75 % (50-85); Total Cells Counted 100
[2017-12-28 07:58] LABS: Calcium 7.7 MG/DL (8.5-10.1); Magnesium 1.7 MG/DL (1.8-2.4); Osmolality,Calculated 270.5 MOS/KG (273-304); Potassium 4.3 MMOL/L (3.5-5.1)
[2017-12-28] MEDS: FUROSEMIDE 40 MG TABLET PO SCH (09:06)
[2017-12-28] MEDS: DOCUSATE SODIUM 100 MG CAPSULE PO SCH ×2 (09:07→21:31)
[2017-12-28] MEDS: CHLORHEXIDINE 0.12% ORAL RINSE 60 ML BOTTLE SWISH/SPIT SCH ×2 (10:24→21:31)
[2017-12-28] MEDS: ASPIRIN CHEW 81 MG TABLET PO SCH ×2 (11:25→11:38)
[2017-12-28] MEDS: AMPICILLIN/SULBACTAM 3,000 MG in SODIUM CHLORIDE 0.9% 100 ML IV SCH ×2 (12:00→23:43)
[2017-12-28] MEDS: AMIODARONE INJ 450 MG in DEXTROSE 5% 241 ML IV SCH (13:14)
[2017-12-28] MEDS: HEPARIN DRIP 25,000 UNITS/500 ML PREMIX IV SCH (17:02)
[2017-12-28] MEDS: CIPROFLOXACIN INJ 400 MG in PREMIX 1 EACH IV SCH (17:16)
[2017-12-28] MEDS: WARFARIN 5 MG TABLET PO SCH (18:34)
[2017-12-28] MEDS: BENZONATATE 100 MG CAPSULE PO PRN (21:31)
[2017-12-28] MEDS: ATORVASTATIN 40 MG TABLET PO SCH (21:31)
[2017-12-29] MEDS: HEPARIN 5,000 UNIT/1 ML VIAL IV PRN (03:18)
[2017-12-29] MEDS: AMIODARONE INJ 450 MG in DEXTROSE 5% 241 ML IV SCH (03:41)
[2017-12-29] MEDS: GENTAMICIN INJ 130 MG in SODIUM CHLORIDE 0.9% 100 ML IV SCH ×2 (03:42→15:44)
[2017-12-29] MEDS: INSULIN REGULAR 100 UNIT/ML SUBCUT SCH ×5 (04:28→21:21)
[2017-12-29 05:51] LABS: Basophils # 0.1 10*3/uL (0.0-0.2); Basophils % 0.2 % (0.0-0.8); Eosinophils # 0.4 10*3/uL (0.0-0.87); Hemoglobin 9.3 GM/DL (14.0-18.0); Immature Granulocytes % 2.6 %; Immature Granulocytes Absolute 0.56 #; Lymphocytes # 4.6 10*3/uL (1.4-4.0); Mean Corpuscular HGB Conc 34.4 GM/DL (32-36); Mean Corpuscular Hemoglobin 30 PG (27-34); Mean Corpuscular Volume 88.2 FL (87-102); Mean Platelet Volume 10.6 FL (9.6-12.0); Monocytes # 2.2 10*3/uL (0.11-0.8); Monocytes % 9.8 % (1.7-12.7); NRBC # 0.02 10*3/uL; Neutrophils # 14.1 10*3/uL (1.4-7.4); Neutrophils % 64.4 % (38.7-73.9); Platelet Count 239 T/CUMM (130-400); Red Blood Count 3.06 MC/CUMM (3.8-5.5); Red Cell Distribution Width 14.7 % (9.3-17.3)
[2017-12-29 06:30] LABS: Eosinophils 1 % (0-10); Hypochromasia 2+; Lymphocytes 18 % (20-55); Platelet Estimate Adequate; Segmented Neutrophils 71 % (50-85); Total Cells Counted 100
[2017-12-29 06:33] LABS: Calcium 7.8 MG/DL (8.5-10.1); Magnesium 2.9 MG/DL (1.8-2.4); Osmolality,Calculated 272.4 MOS/KG (273-304); Potassium 4.5 MMOL/L (3.5-5.1)
[2017-12-29 09:02] LABS: INR 1.3
[2017-12-29] MEDS: FUROSEMIDE 40 MG TABLET PO SCH (09:08)
[2017-12-29] MEDS: ASPIRIN CHEW 81 MG TABLET PO SCH (09:08)
[2017-12-29] MEDS: DOCUSATE SODIUM 100 MG CAPSULE PO SCH ×2 (09:08→21:21)
[2017-12-29] MEDS: AMIODARONE 200 MG TABLET PO SCH ×2 (09:08→21:21)
[2017-12-29] MEDS: METOPROLOL SUCCINATE XL 50 MG TABLET PO SCH (09:08)
[2017-12-29] MEDS: CHLORHEXIDINE 0.12% ORAL RINSE 60 ML BOTTLE SWISH/SPIT SCH ×2 (09:09→21:24)
[2017-12-29] MEDS: AMPICILLIN/SULBACTAM 3,000 MG in SODIUM CHLORIDE 0.9% 100 ML IV SCH (12:19)
[2017-12-29] MEDS: CIPROFLOXACIN INJ 400 MG in PREMIX 1 EACH IV SCH (13:01)
[2017-12-29] MEDS: HEPARIN DRIP 25,000 UNITS/500 ML PREMIX IV SCH ×2 (13:04→21:34)
[2017-12-29] MEDS: methylPREDNISolone SOD SUC INJ 1,000 MG in SODIUM CHLORIDE 0.9% 100 ML IV SCH (15:44)
[2017-12-29] MEDS: WARFARIN 5 MG TABLET PO SCH (18:40)
[2017-12-29] MEDS: ATORVASTATIN 40 MG TABLET PO SCH (21:21)
[2017-12-30] MEDS: AMPICILLIN/SULBACTAM 3,000 MG in SODIUM CHLORIDE 0.9% 100 ML IV SCH ×2 (00:19→12:37)
[2017-12-30] MEDS: INSULIN REGULAR 100 UNIT/ML SUBCUT SCH ×4 (00:54→12:37)
[2017-12-30] MEDS: GENTAMICIN INJ 130 MG in SODIUM CHLORIDE 0.9% 100 ML IV SCH (03:13)
[2017-12-30 05:53] LABS: INR 1.9; PT Patient Result 19.5 SECS
[2017-12-30] MEDS: DOCUSATE SODIUM 100 MG CAPSULE PO SCH (09:48)
[2017-12-30] MEDS: AMIODARONE 200 MG TABLET PO SCH (09:48)
[2017-12-30] MEDS: ASPIRIN CHEW 81 MG TABLET PO SCH (09:48)
[2017-12-30] MEDS: FUROSEMIDE 40 MG TABLET PO SCH (09:48)
[2017-12-30] MEDS: METOPROLOL SUCCINATE XL 50 MG TABLET PO SCH (09:49)
[2017-12-30] MEDS: CHLORHEXIDINE 0.12% ORAL RINSE 60 ML BOTTLE SWISH/SPIT SCH (09:49)
[2017-12-30 11:46] VITALS: BP 117/78
[2017-12-30] MEDS: CIPROFLOXACIN INJ 400 MG in PREMIX 1 EACH IV SCH (12:37)
[2017-12-30] MEDS: methylPREDNISolone SOD SUC INJ 1,000 MG in SODIUM CHLORIDE 0.9% 100 ML IV SCH ×2 (13:29→14:37)
[2017-12-30] MEDS ORDERED: GENTAMICIN INJ 240 MG in SODIUM CHLORIDE 0.9% 100 ML IV SCH (21:00)
[2017-12-31 06:14] LABS: c-ANCA Negative (Negative); p-ANCA Negative (Negative)
[2017-12-31] MEDS ORDERED: predniSONE 20 MG TABLET PO SCH (09:00)
== END 2017-12-30 15:55 | disposition home or self-care (01) | DRG 219 ==
LOC: N.ED 00:04 → N.EDINP 04:07 → SUATTDRO 04:07 → N.5E 04:40 → N.ICU 12:35 → N.CVR 21:51 → N.TELES 12-23 16:07
PROVIDERS: ADMIT Internal Medicine; ATTEND Thoracic Surgery (Cardiothoracic Vascular Surgery)

== ENCOUNTER 2018-01-19 11:08 | Inpatient (IN) ==
[2018-01-19 12:55] LABS: Basophils % 0.1 % (0.0-0.8); Eosinophils # 0.2 10*3/uL (0.0-0.87); Hemoglobin 6.5 GM/DL (14.0-18.0); Immature Granulocytes Absolute 0.34 #; Lymphocytes # 1.3 10*3/uL (1.4-4.0); Lymphocytes % 7.4 % (21.2-54.2); Mean Corpuscular HGB Conc 32.5 GM/DL (32-36); Mean Corpuscular Hemoglobin 31 PG (27-34); Mean Corpuscular Volume 96.6 FL (87-102); Mean Platelet Volume 11.5 FL (9.6-12.0); Monocytes # 1.3 10*3/uL (0.11-0.8); Monocytes % 7.5 % (1.7-12.7); Neutrophils # 13.8 10*3/uL (1.4-7.4); Platelet Count 213 T/CUMM (130-400); Red Blood Count 2.07 MC/CUMM (3.8-5.5); Red Cell Distribution Width 18.1 % (9.3-17.3); White Blood Count 16.9 T/CUMM (4-12)
[2018-01-19 13:02] LABS: Albumin 2.9 G/DL (3.4-5.0); Bilirubin,Total 0.6 MG/DL (0.2-1.0); Calcium 8.2 MG/DL (8.5-10.1); Osmolality,Calculated 294.5 MOS/KG (273-304); Potassium 4.4 MMOL/L (3.5-5.1); Total Protein 6.4 G/DL (6.4-8.3)
[2018-01-19 13:03] LABS: INR 1.5; PT Patient Result 16.1 SECS; Partial Thromboplastin Time 34.3 SECS (0-40)
[2018-01-19] MEDS ORDERED: HEPARIN 1,000 UNIT/1 ML VIAL IV STA (14:47)
[2018-01-19] MEDS ORDERED: SODIUM CHLORIDE 0.9% 1,000 ML IV PRN (14:47)
[2018-01-19] MEDS ORDERED: HEPARIN DRIP 25,000 UNITS/500 ML PREMIX IV SCH (14:47)
[2018-01-19] MEDS ORDERED: GENTAMICIN INJ 240 MG in SODIUM CHLORIDE 0.9% 100 ML IV SCH (14:47)
[2018-01-19] MEDS: AMPICILLIN/SULBACTAM 3,000 MG in SODIUM CHLORIDE 0.9% 100 ML IV SCH (15:55)
[2018-01-19] MEDS: FUROSEMIDE 40 MG/4 ML VIAL IV SCH (15:56)
[2018-01-19] MEDS: PANTOPRAZOLE 40 MG TABLET PO SCH ×2 (15:57→21:08)
[2018-01-19] MEDS ORDERED: HEPARIN 5,000 UNIT/1 ML VIAL IV STA (16:15)
[2018-01-19 17:06] LABS: Apearance,Urine CLEAR (Clear); Bilirubin,Urine Negative (Negative); Blood, Urine Large mg/dL (Negative); Glucose,Urine (UA) Negative (Negative); Ketones,Urine Negative (Negative); Nitrite,Urine Negative (Negative); Protein,Urine Negative; RBC,Urine 32 /HPF (0-4); Urine Color Straw (Yellow); Urine Specific Gravity 1.004 (1.001-1.035); Urine Urobilinogen < 2.0 EU/DL (0.2-1.0); WBC,Urine 5 /HPF (0-6)
[2018-01-19] MEDS ORDERED: WARFARIN 5 MG TABLET PO SCH (18:00)
[2018-01-19] MEDS ORDERED: METOPROLOL TARTRATE 50 MG TABLET PO SCH (21:00)
[2018-01-19] MEDS: ATORVASTATIN 40 MG TABLET PO SCH (21:08)
[2018-01-19] MEDS: ASPIRIN CHEW 81 MG TABLET PO SCH (21:08)
[2018-01-20] MEDS: AMIODARONE 200 MG TABLET PO SCH ×3 (00:19→21:24)
[2018-01-20] MEDS: METOPROLOL TARTRATE 25 MG TABLET PO SCH ×3 (00:24→21:24)
[2018-01-20] MEDS: AMPICILLIN/SULBACTAM 3,000 MG in SODIUM CHLORIDE 0.9% 100 ML IV SCH (02:54)
[2018-01-20 03:24] LABS: Basophils % 0.1 % (0.0-0.8); Eosinophils # 0.3 10*3/uL (0.0-0.87); Eosinophils % 2.4 % (0.00-10.9); Hematocrit 23.1 VOL% (42.0-52.0); Hemoglobin 7.5 GM/DL (14.0-18.0); Immature Granulocytes % 2.3 %; Immature Granulocytes Absolute 0.32 #; Lymphocytes # 2.3 10*3/uL (1.4-4.0); Lymphocytes % 15.9 % (21.2-54.2); Mean Corpuscular HGB Conc 32.5 GM/DL (32-36); Mean Corpuscular Hemoglobin 30 PG (27-34); Monocytes # 1.2 10*3/uL (0.11-0.8); Monocytes % 8.2 % (1.7-12.7); Neutrophils # 10.1 10*3/uL (1.4-7.4); Neutrophils % 71.1 % (38.7-73.9); Platelet Count 171 T/CUMM (130-400); Red Blood Count 2.51 MC/CUMM (3.8-5.5); Red Cell Distribution Width 17.6 % (9.3-17.3); White Blood Count 14.2 T/CUMM (4-12)
[2018-01-20] MEDS ORDERED: SODIUM CHLORIDE 0.9% 1,000 ML IV PRN (03:36)
[2018-01-20 03:45] LABS: INR 1.4; PT Patient Result 14.7 SECS
[2018-01-20 04:02] LABS: Calcium 7.6 MG/DL (8.5-10.1); Osmolality,Calculated 296.3 MOS/KG (273-304); Potassium 4.3 MMOL/L (3.5-5.1)
[2018-01-20] MEDS ORDERED: WARFARIN 5 MG TABLET PO ONE (06:53)
[2018-01-20] MEDS: predniSONE 20 MG TABLET PO SCH (08:30)
[2018-01-20] MEDS: FUROSEMIDE 40 MG/4 ML VIAL IV SCH (08:31)
[2018-01-20] MEDS: PANTOPRAZOLE 40 MG TABLET PO SCH ×2 (08:31→21:23)
[2018-01-20] MEDS: CALCIUM (CITRATE)/VITAMIN D 200 MG-125 UNIT TABLET PO SCH ×2 (12:17→23:50)
[2018-01-20] MEDS ORDERED: WARFARIN 2.5 MG TABLET PO SCH (18:00)
[2018-01-20] MEDS: ATORVASTATIN 40 MG TABLET PO SCH (21:23)
[2018-01-20] MEDS: ASPIRIN CHEW 81 MG TABLET PO SCH (21:23)
[2018-01-20] MEDS: FUROSEMIDE 40 MG TABLET PO SCH (21:24)
[2018-01-21 06:43] LABS: Basophils % 0.1 % (0.0-0.8); Eosinophils # 0.1 10*3/uL (0.0-0.87); Eosinophils % 0.5 % (0.00-10.9); Immature Granulocytes % 1.2 %; Lymphocytes % 5.6 % (21.2-54.2); Mean Corpuscular HGB Conc 34.6 GM/DL (32-36); Mean Corpuscular Hemoglobin 30 PG (27-34); Monocytes # 1.5 10*3/uL (0.11-0.8); Monocytes % 8.6 % (1.7-12.7); Neutrophils # 14.5 10*3/uL (1.4-7.4); Platelet Count 189 T/CUMM (130-400); Red Blood Count 2.99 MC/CUMM (3.8-5.5); Red Cell Distribution Width 17.8 % (9.3-17.3); White Blood Count 17.2 T/CUMM (4-12)
[2018-01-21 06:47] LABS: INR 1.8
[2018-01-21 07:18] LABS: Calcium 7.8 MG/DL (8.5-10.1); Osmolality,Calculated 292.5 MOS/KG (273-304)
[2018-01-21] MEDS: METOPROLOL TARTRATE 25 MG TABLET PO SCH (09:14)
[2018-01-21] MEDS: FUROSEMIDE 40 MG TABLET PO SCH (09:15)
[2018-01-21] MEDS: PANTOPRAZOLE 40 MG TABLET PO SCH (09:15)
[2018-01-21] MEDS: AMIODARONE 200 MG TABLET PO SCH (09:15)
[2018-01-21] MEDS: predniSONE 20 MG TABLET PO SCH (09:15)
[2018-01-21] MEDS: CALCIUM (CITRATE)/VITAMIN D 200 MG-125 UNIT TABLET PO SCH (09:34)
[2018-01-21 12:09] VITALS: BP 115/57
== END 2018-01-21 15:25 | disposition home or self-care (01) | DRG 811 ==
LOC: N.ED 11:08 → N.EDINP 12:06 → N.TELES 14:46
PROVIDERS: ADMIT Internal Medicine; ATTEND Internal Medicine

== ENCOUNTER 2018-06-15 01:57 | Inpatient (IN) ==
[2018-06-15] MEDS ORDERED: IBUPROFEN 800 MG TABLET ONE (02:21)
[2018-06-15] MEDS ORDERED: SODIUM CHLORIDE 0.9% 2,000 ML IV STA (02:29)
[2018-06-15] MEDS ORDERED: CEFEPIME 2,000 MG in SODIUM CHLORIDE 0.9% 100 ML IV STA (02:29)
[2018-06-15] MEDS ORDERED: VANCOMYCIN INJ 1,500 MG in SODIUM CHLORIDE 0.9% 250 ML IV STA (02:29)
[2018-06-15] MEDS ORDERED: SODIUM CHLORIDE 0.9% 1,000 ML IV STA (02:32)
[2018-06-15 02:41] LABS: Basophils # 0.1 10*3/uL (0.0-0.2); Basophils % 0.2 % (0.0-0.8); Hematocrit 36.5 VOL% (42.0-52.0); Hemoglobin 12.9 GM/DL (14.0-18.0); Immature Granulocytes % 2.2 %; Immature Granulocytes Absolute 0.62 #; Lymphocytes # 1.1 10*3/uL (1.4-4.0); Lymphocytes % 3.7 % (21.2-54.2); Mean Corpuscular HGB Conc 35.3 GM/DL (32-36); Mean Corpuscular Hemoglobin 29 PG (27-34); Mean Corpuscular Volume 81.8 FL (87-102); Mean Platelet Volume 12.6 FL (9.6-12.0); Monocytes # 2.7 10*3/uL (0.11-0.8); Monocytes % 9.4 % (1.7-12.7); Neutrophils # 23.9 10*3/uL (1.4-7.4); Neutrophils % 84.5 % (38.7-73.9); Platelet Count 136 T/CUMM (130-400); Red Blood Count 4.46 MC/CUMM (3.8-5.5); Red Cell Distribution Width 14.3 % (9.3-17.3); White Blood Count 28.3 T/CUMM (4-12)
[2018-06-15 02:47] LABS: INR 1.2; PT Patient Result 12.7 SECS; Partial Thromboplastin Time 36.6 SECS (0-40)
[2018-06-15 02:58] LABS: Albumin 3.5 G/DL (3.4-5.0); Calcium 8.4 MG/DL (8.5-10.1); Osmolality,Calculated 272.2 MOS/KG (273-304); Potassium 3.4 MMOL/L (3.5-5.1); Total Protein 7.8 G/DL (6.4-8.3)
[2018-06-15 03:14] LABS: Apearance,Urine CLOUDY (Clear); Bacteria,Urine Occasional /HPF (Few); Bilirubin,Urine Negative (Negative); Blood, Urine Large mg/dL (Negative); Glucose,Urine (UA) Negative (Negative); Ketones,Urine 5 mg/dL (Negative); Mucus,Urine Occasional /LPF (Occasional); Nitrite,Urine Negative (Negative); Protein,Urine 30 MG/DL; RBC,Urine 43 /HPF (0-4); Urine Color Yellow (Yellow); Urine Urobilinogen < 2.0 EU/DL (0.2-1.0); WBC,Urine 5 /HPF (0-6)
[2018-06-15 03:46] LABS: Sedimentation Rate-Westergren 82 MM/HR (0-15)
[2018-06-15 04:13] LABS: Barbiturates Screen,Urine Negative (Negative); Benzodiazepines Screen,Urine Negative (Negative); Cannabinoid Screen,Urine Positive (Negative); Opiate Screen,Urine Negative (Negative); Phencyclidine Screen,Urine Negative (Negative)
[2018-06-15 04:24] LABS: Band Neutrophils 1 % (0-10); Lymphocytes 13 % (20-55); Platelet Estimate Normal; Segmented Neutrophils 80 % (50-85); Total Cells Counted 100
[2018-06-15] MEDS ORDERED: ONDANSETRON 4 MG/2 ML VIAL IV PRN (05:57)
[2018-06-15] MEDS ORDERED: ACETAMINOPHEN 325 MG TABLET PO PRN (05:57)
[2018-06-15] MEDS: SODIUM CHLORIDE 0.9% 1,000 ML IV SCH ×6 (06:47→23:31)
[2018-06-15] MEDS: VANCOMYCIN INJ 1,500 MG in SODIUM CHLORIDE 0.9% 500 ML IV SCH ×2 (06:50→19:49)
[2018-06-15] MEDS: HEPARIN DRIP 25,000 UNITS/500 ML PREMIX IV SCH (07:05)
[2018-06-15] MEDS: PANTOPRAZOLE 40 MG TABLET PO SCH (09:28)
[2018-06-15] MEDS: AMIODARONE 200 MG TABLET PO SCH ×2 (11:54→21:27)
[2018-06-15] MEDS ORDERED: cloNIDine 0.1 MG TABLET PO PRN (14:11)
[2018-06-15] MEDS ORDERED: SODIUM CHLORIDE 0.9% 1,000 ML IV SCH (18:30)
[2018-06-15] MEDS ORDERED: SODIUM CHLORIDE 0.9% 250 ML IV ONE ×2 (20:14→21:14)
[2018-06-15] MEDS: ATORVASTATIN 40 MG TABLET PO SCH (21:27)
[2018-06-15 21:38] LABS: Basophils # 0.1 10*3/uL (0.0-0.2); Basophils % 0.2 % (0.0-0.8); Hemoglobin 10.6 GM/DL (14.0-18.0); Immature Granulocytes % 5.8 %; Lymphocytes # 1.2 10*3/uL (1.4-4.0); Lymphocytes % 4.7 % (21.2-54.2); Mean Corpuscular HGB Conc 35.3 GM/DL (32-36); Mean Corpuscular Hemoglobin 29 PG (27-34); Mean Corpuscular Volume 82.2 FL (87-102); Mean Platelet Volume 12.8 FL (9.6-12.0); Monocytes # 2.1 10*3/uL (0.11-0.8); Neutrophils % 81.3 % (38.7-73.9); Platelet Count 115 T/CUMM (130-400); Red Blood Count 3.65 MC/CUMM (3.8-5.5); Red Cell Distribution Width 14.6 % (9.3-17.3); White Blood Count 25.9 T/CUMM (4-12)
[2018-06-15] MEDS: GENTAMICIN INJ 120 MG in PREMIX 1 EACH IV SCH (23:31)
[2018-06-15] MEDS ORDERED: SODIUM CHLORIDE 0.9% 1,000 ML IV ONE (23:50)
[2018-06-16 01:36] LABS: Band Neutrophils 2 % (0-10); Lymphocytes 4 % (20-55); Segmented Neutrophils 91 % (50-85); Total Cells Counted 100
[2018-06-16 01:37] LABS: Platelet Estimate Normal
[2018-06-16 01:48] LABS: Basophils # 0.1 10*3/uL (0.0-0.2); Basophils % 0.2 % (0.0-0.8); Hematocrit 27.8 VOL% (42.0-52.0); Hemoglobin 9.7 GM/DL (14.0-18.0); Immature Granulocytes % 6.6 %; Immature Granulocytes Absolute 1.38 #; Lymphocytes # 1.2 10*3/uL (1.4-4.0); Lymphocytes % 5.6 % (21.2-54.2); Mean Corpuscular HGB Conc 34.9 GM/DL (32-36); Mean Corpuscular Hemoglobin 29 PG (27-34); Mean Corpuscular Volume 82.2 FL (87-102); Mean Platelet Volume 12.9 FL (9.6-12.0); Monocytes # 1.8 10*3/uL (0.11-0.8); Monocytes % 8.6 % (1.7-12.7); Neutrophils # 16.5 10*3/uL (1.4-7.4); Platelet Count 106 T/CUMM (130-400); Red Blood Count 3.38 MC/CUMM (3.8-5.5); Red Cell Distribution Width 14.6 % (9.3-17.3); White Blood Count 20.9 T/CUMM (4-12)
[2018-06-16 02:14] LABS: Albumin 2.5 G/DL (3.4-5.0); Bilirubin,Total 1.5 MG/DL (0.2-1.0); Calcium 7.1 MG/DL (8.5-10.1); Osmolality,Calculated 275.5 MOS/KG (273-304); Potassium 3.5 MMOL/L (3.5-5.1); Total Protein 5.8 G/DL (6.4-8.3)
[2018-06-16 02:21] LABS: Band Neutrophils 1 % (0-10); Lymphocytes 8 % (20-55); Platelet Estimate Normal; Segmented Neutrophils 86 % (50-85); Total Cells Counted 100
[2018-06-16] MEDS: SODIUM CHLORIDE 0.9% 1,000 ML IV SCH ×3 (02:29→05:41)
[2018-06-16] MEDS: HEPARIN DRIP 25,000 UNITS/500 ML PREMIX IV SCH (07:44)
[2018-06-16] MEDS: AMIODARONE 200 MG TABLET PO SCH ×3 (07:52→21:35)
[2018-06-16] MEDS: PANTOPRAZOLE 40 MG TABLET PO SCH ×2 (07:52→09:47)
[2018-06-16] MEDS ORDERED: BUPIVACAINE 0.25% /EPI 10 ML VIAL ONE (08:07)
[2018-06-16] MEDS ORDERED: PROPOFOL 200 MG/20 ML VIAL IV ONE (09:07)
[2018-06-16] MEDS ORDERED: SEVOFLURANE 1 UNIT/15 MINUTE INH ONE (09:08)
[2018-06-16] MEDS ORDERED: fentaNYL 100 MCG/2 ML VIAL ONE (09:09)
[2018-06-16] MEDS ORDERED: ETOMIDATE 40 MG/20 ML VIAL IV ONE (09:09)
[2018-06-16] MEDS ORDERED: MIDAZOLAM 2 MG/2 ML VIAL ONE (09:09)
[2018-06-16] MEDS ORDERED: DEXTROSE 50% 25 GM/50 ML VIAL IV PRN (09:41)
[2018-06-16] MEDS ORDERED: GLUCAGON 1 MG VIAL IM PRN (09:41)
[2018-06-16] MEDS ORDERED: MAGNESIUM SULF RIDER 2 GM in PREMIX 1 EACH IV ONE (10:00)
[2018-06-16] MEDS: GENTAMICIN INJ 120 MG in PREMIX 1 EACH IV SCH (10:22)
[2018-06-16] MEDS: VANCOMYCIN INJ 1,500 MG in SODIUM CHLORIDE 0.9% 500 ML IV SCH (11:31)
[2018-06-16 13:21] LABS: Free T4 (Free Thyroxine) 1.77 NG/DL (0.76-1.46)
[2018-06-16] MEDS ORDERED: MAGNESIUM SULF RIDER 4 GM in PREMIX 1 EACH IV PRN (14:40)
[2018-06-16] MEDS: CARVEDILOL 3.125 MG TABLET PO SCH ×2 (15:58→21:35)
[2018-06-16 17:54] LABS: INR 1.2
[2018-06-16] MEDS: WARFARIN 5 MG TABLET PO SCH (18:06)
[2018-06-16] MEDS: POTASSIUM CHLORIDE 20 MEQ/15 ML UDCUP PER TUBE PRN (21:34)
[2018-06-16] MEDS: ATORVASTATIN 40 MG TABLET PO SCH (21:35)
[2018-06-16] MEDS: PIPERACILLIN/TAZOBACTAM 3,375 MG in SODIUM CHLORIDE 0.9% 100 ML IV SCH (22:00)
[2018-06-17 00:26] LABS: Basophils % 0.2 % (0.0-0.8); Eosinophils % 0.2 % (0.00-10.9); Hematocrit 27.4 VOL% (42.0-52.0); Hemoglobin 9.6 GM/DL (14.0-18.0); Immature Granulocytes % 6.8 %; Immature Granulocytes Absolute 1.19 #; Lymphocytes # 1.5 10*3/uL (1.4-4.0); Lymphocytes % 8.5 % (21.2-54.2); Mean Corpuscular Hemoglobin 29 PG (27-34); Mean Corpuscular Volume 82.3 FL (87-102); Mean Platelet Volume 13.4 FL (9.6-12.0); Monocytes # 1.2 10*3/uL (0.11-0.8); Monocytes % 6.8 % (1.7-12.7); Neutrophils # 13.5 10*3/uL (1.4-7.4); Neutrophils % 77.5 % (38.7-73.9); Platelet Count 133 T/CUMM (130-400); Red Blood Count 3.33 MC/CUMM (3.8-5.5); Red Cell Distribution Width 14.7 % (9.3-17.3); White Blood Count 17.4 T/CUMM (4-12)
[2018-06-17 00:45] LABS: Calcium 7.7 MG/DL (8.5-10.1); Calcium 7.8 MG/DL (8.5-10.1); Osmolality,Calculated 276.7 MOS/KG (273-304); Potassium 3.7 MMOL/L (3.5-5.1)
[2018-06-17 00:46] LABS: Osmolality,Calculated 276.7 MOS/KG (273-304); Potassium 3.6 MMOL/L (3.5-5.1)
[2018-06-17 01:01] LABS: VLDL CHOLESTEROL 26.2 MG/DL
[2018-06-17 01:04] LABS: Risk Ratio 6.8
[2018-06-17] MEDS: VANCOMYCIN INJ 1,500 MG in SODIUM CHLORIDE 0.9% 500 ML IV SCH ×2 (03:27→14:32)
[2018-06-17] MEDS: HEPARIN DRIP 25,000 UNITS/500 ML PREMIX IV SCH ×2 (03:56→22:59)
[2018-06-17] MEDS: POTASSIUM CHLORIDE 20 MEQ/15 ML UDCUP PER TUBE PRN ×3 (04:09→12:11)
[2018-06-17 05:05] LABS: Band Neutrophils 1 % (0-10); Eosinophils 1 % (0-10); Lymphocytes 13 % (20-55); Segmented Neutrophils 83 % (50-85); Total Cells Counted 100
[2018-06-17 05:06] LABS: Microcytosis Slight; Platelet Estimate Normal
[2018-06-17] MEDS: MAGNESIUM SULF RIDER 2 GM in PREMIX 1 EACH IV PRN (05:58)
[2018-06-17 08:13] LABS: INR 1.4; PT Patient Result 14.2 SECS
[2018-06-17] MEDS: SODIUM CHLORIDE 0.9% 1,000 ML IV SCH ×4 (08:38→22:58)
[2018-06-17] MEDS: CARVEDILOL 3.125 MG TABLET PO SCH ×2 (09:37→20:36)
[2018-06-17] MEDS: PIPERACILLIN/TAZOBACTAM 3,375 MG in SODIUM CHLORIDE 0.9% 100 ML IV SCH ×2 (09:37→17:46)
[2018-06-17] MEDS: PANTOPRAZOLE 40 MG TABLET PO SCH (09:37)
[2018-06-17] MEDS: AMIODARONE 200 MG TABLET PO SCH ×2 (09:37→20:36)
[2018-06-17] MEDS: WARFARIN 5 MG TABLET PO SCH (18:08)
[2018-06-17] MEDS ORDERED: DOCUSATE SODIUM 100 MG CAPSULE PO PRN (20:08)
[2018-06-17] MEDS: ATORVASTATIN 40 MG TABLET PO SCH (20:36)
[2018-06-18] MEDS: PIPERACILLIN/TAZOBACTAM 3,375 MG in SODIUM CHLORIDE 0.9% 100 ML IV SCH ×2 (00:32→09:52)
[2018-06-18] MEDS: VANCOMYCIN INJ 1,500 MG in SODIUM CHLORIDE 0.9% 500 ML IV SCH ×2 (05:27→22:24)
[2018-06-18 06:40] LABS: Basophils # 0.1 10*3/uL (0.0-0.2); Basophils % 0.7 % (0.0-0.8); Eosinophils # 0.2 10*3/uL (0.0-0.87); Eosinophils % 1.7 % (0.00-10.9); Hematocrit 25.4 VOL% (42.0-52.0); Immature Granulocytes % 7.1 %; Immature Granulocytes Absolute 0.75 #; Lymphocytes # 1.4 10*3/uL (1.4-4.0); Lymphocytes % 13.5 % (21.2-54.2); Mean Corpuscular HGB Conc 35.4 GM/DL (32-36); Mean Corpuscular Hemoglobin 29 PG (27-34); Mean Corpuscular Volume 81.7 FL (87-102); Mean Platelet Volume 12.7 FL (9.6-12.0); Monocytes # 1.3 10*3/uL (0.11-0.8); Monocytes % 12.5 % (1.7-12.7); Neutrophils # 6.8 10*3/uL (1.4-7.4); Neutrophils % 64.5 % (38.7-73.9); Platelet Count 143 T/CUMM (130-400); Red Blood Count 3.11 MC/CUMM (3.8-5.5); Red Cell Distribution Width 14.8 % (9.3-17.3); White Blood Count 10.6 T/CUMM (4-12)
[2018-06-18 06:56] LABS: Calcium 7.7 MG/DL (8.5-10.1); Osmolality,Calculated 278.5 MOS/KG (273-304)
[2018-06-18 07:03] LABS: Eosinophils 2 % (0-10); Hypochromasia 1+; Lymphocytes 14 % (20-55); Microcytosis Slight; Platelet Estimate Normal; Segmented Neutrophils 78 % (50-85); Total Cells Counted 100
[2018-06-18 07:32] LABS: INR 1.7; PT Patient Result 17.6 SECS
[2018-06-18] MEDS: HYDROmorphone 2 MG/1 ML VIAL IV PRN (09:09)
[2018-06-18] MEDS: PANTOPRAZOLE 40 MG TABLET PO SCH (09:51)
[2018-06-18] MEDS: AMIODARONE 200 MG TABLET PO SCH ×2 (09:52→20:49)
[2018-06-18] MEDS: CARVEDILOL 3.125 MG TABLET PO SCH ×2 (09:59→20:48)
[2018-06-18] MEDS: WARFARIN 5 MG TABLET PO SCH (17:27)
[2018-06-18] MEDS: ATORVASTATIN 40 MG TABLET PO SCH (20:48)
[2018-06-18] MEDS: HEPARIN DRIP 25,000 UNITS/500 ML PREMIX IV SCH (20:50)
[2018-06-18] MEDS: SODIUM CHLORIDE 0.9% 1,000 ML IV SCH (20:52)
[2018-06-19 06:02] LABS: Basophils # 0.1 10*3/uL (0.0-0.2); Basophils % 0.7 % (0.0-0.8); Eosinophils # 0.2 10*3/uL (0.0-0.87); Hematocrit 24.9 VOL% (42.0-52.0); Hemoglobin 8.6 GM/DL (14.0-18.0); Immature Granulocytes % 6.7 %; Immature Granulocytes Absolute 0.59 #; Lymphocytes # 1.5 10*3/uL (1.4-4.0); Lymphocytes % 16.5 % (21.2-54.2); Mean Corpuscular HGB Conc 34.5 GM/DL (32-36); Mean Corpuscular Hemoglobin 29 PG (27-34); Mean Corpuscular Volume 82.5 FL (87-102); Monocytes # 1.2 10*3/uL (0.11-0.8); Neutrophils # 5.4 10*3/uL (1.4-7.4); Neutrophils % 61.1 % (38.7-73.9); Platelet Count 166 T/CUMM (130-400); Red Blood Count 3.02 MC/CUMM (3.8-5.5); Red Cell Distribution Width 15.2 % (9.3-17.3); White Blood Count 8.9 T/CUMM (4-12)
[2018-06-19 06:10] LABS: INR 2.4
[2018-06-19 06:11] LABS: PT Patient Result 24.4 SECS
[2018-06-19 06:26] LABS: Calcium 7.9 MG/DL (8.5-10.1); Osmolality,Calculated 282.1 MOS/KG (273-304)
[2018-06-19 06:29] LABS: Band Neutrophils 1 % (0-10); Eosinophils 3 % (0-10); Hypochromasia 1+; Lymphocytes 20 % (20-55); Microcytosis Slight; Ovalocytes Slight; Platelet Estimate Normal; Segmented Neutrophils 65 % (50-85); Total Cells Counted 100
[2018-06-19] MEDS: HYDROmorphone 2 MG/1 ML VIAL IV PRN (08:39)
[2018-06-19] MEDS: PANTOPRAZOLE 40 MG TABLET PO SCH (08:39)
[2018-06-19] MEDS: CARVEDILOL 3.125 MG TABLET PO SCH ×2 (08:40→20:18)
[2018-06-19] MEDS: AMIODARONE 200 MG TABLET PO SCH ×2 (08:40→20:18)
[2018-06-19] MEDS: VANCOMYCIN INJ 1,500 MG in SODIUM CHLORIDE 0.9% 500 ML IV SCH (16:19)
[2018-06-19] MEDS: SODIUM CHLORIDE 0.9% 1,000 ML IV SCH (16:20)
[2018-06-19] MEDS: WARFARIN 5 MG TABLET PO SCH (17:58)
[2018-06-19] MEDS: ATORVASTATIN 40 MG TABLET PO SCH (20:18)
[2018-06-20] MEDS: SODIUM CHLORIDE 0.9% 1,000 ML IV SCH ×2 (05:13→11:48)
[2018-06-20 06:10] LABS: Basophils # 0.1 10*3/uL (0.0-0.2); Basophils % 0.5 % (0.0-0.8); Eosinophils # 0.2 10*3/uL (0.0-0.87); Eosinophils % 1.5 % (0.00-10.9); Hematocrit 25.6 VOL% (42.0-52.0); Hemoglobin 8.8 GM/DL (14.0-18.0); Immature Granulocytes % 7.6 %; Lymphocytes # 1.7 10*3/uL (1.4-4.0); Lymphocytes % 16.1 % (21.2-54.2); Mean Corpuscular HGB Conc 34.4 GM/DL (32-36); Mean Corpuscular Hemoglobin 28 PG (27-34); Mean Corpuscular Volume 82.3 FL (87-102); Mean Platelet Volume 12.4 FL (9.6-12.0); Monocytes # 1.2 10*3/uL (0.11-0.8); Monocytes % 11.5 % (1.7-12.7); Neutrophils # 6.6 10*3/uL (1.4-7.4); Neutrophils % 62.8 % (38.7-73.9); Platelet Count 188 T/CUMM (130-400); Red Blood Count 3.11 MC/CUMM (3.8-5.5); White Blood Count 10.5 T/CUMM (4-12)
[2018-06-20 06:40] LABS: Band Neutrophils 6 % (0-10); Lymphocytes 25 % (20-55); Nucleated Red Blood Cells 2 (0-5); Segmented Neutrophils 67 % (50-85); Total Cells Counted 100
[2018-06-20 06:41] LABS: Anisocytosis 1+; Poikilocytosis 1+; Polychromasia 1+; Target Cells 1+
[2018-06-20] MEDS: CARVEDILOL 3.125 MG TABLET PO SCH ×2 (08:04→20:17)
[2018-06-20] MEDS: PANTOPRAZOLE 40 MG TABLET PO SCH (08:04)
[2018-06-20] MEDS: VANCOMYCIN INJ 1,500 MG in SODIUM CHLORIDE 0.9% 500 ML IV SCH (08:05)
[2018-06-20] MEDS: AMIODARONE 200 MG TABLET PO SCH ×2 (08:08→20:17)
[2018-06-20 08:50] LABS: INR 3.1
[2018-06-20 08:52] LABS: PT Patient Result 31.4 SECS
[2018-06-20] MEDS: HYDROmorphone 2 MG/1 ML VIAL IV PRN (09:02)
[2018-06-20] MEDS: WARFARIN 5 MG TABLET PO SCH (18:06)
[2018-06-20] MEDS: ATORVASTATIN 40 MG TABLET PO SCH (20:17)
[2018-06-21 01:51] LABS: Basophils # 0.1 10*3/uL (0.0-0.2); Basophils % 0.4 % (0.0-0.8); Eosinophils # 0.2 10*3/uL (0.0-0.87); Eosinophils % 1.3 % (0.00-10.9); Hematocrit 25.8 VOL% (42.0-52.0); Immature Granulocytes Absolute 1.17 #; Lymphocytes # 2.3 10*3/uL (1.4-4.0); Lymphocytes % 17.7 % (21.2-54.2); Mean Corpuscular HGB Conc 34.9 GM/DL (32-36); Mean Corpuscular Hemoglobin 29 PG (27-34); Mean Corpuscular Volume 82.7 FL (87-102); Mean Platelet Volume 12.3 FL (9.6-12.0); Monocytes # 1.5 10*3/uL (0.11-0.8); Monocytes % 11.2 % (1.7-12.7); Neutrophils # 7.9 10*3/uL (1.4-7.4); Neutrophils % 60.4 % (38.7-73.9); Platelet Count 209 T/CUMM (130-400); Red Blood Count 3.12 MC/CUMM (3.8-5.5); Red Cell Distribution Width 15.1 % (9.3-17.3); White Blood Count 13.1 T/CUMM (4-12)
[2018-06-21 01:55] LABS: Potassium 3.9 MMOL/L (3.5-5.1)
[2018-06-21] MEDS: VANCOMYCIN INJ 1,500 MG in SODIUM CHLORIDE 0.9% 500 ML IV SCH ×2 (03:19→22:00)
[2018-06-21 03:25] LABS: Lymphocytes 22 % (20-55); Metamyelocytes 2 %; Platelet Estimate Normal; Polychromasia Few; Segmented Neutrophils 62 % (50-85); Total Cells Counted 100
[2018-06-21 08:29] LABS: INR 2.3
[2018-06-21] MEDS: CARVEDILOL 3.125 MG TABLET PO SCH ×2 (09:13→21:52)
[2018-06-21] MEDS: PANTOPRAZOLE 40 MG TABLET PO SCH (09:13)
[2018-06-21] MEDS: AMIODARONE 200 MG TABLET PO SCH ×2 (09:13→21:52)
[2018-06-21] MEDS: MAGNESIUM SULF RIDER 2 GM in PREMIX 1 EACH IV PRN (09:13)
[2018-06-21] MEDS: HYDROmorphone 2 MG/1 ML VIAL IV PRN (14:05)
[2018-06-21] MEDS: SODIUM HYPOCHLORITE 0.25% IRRIG 473 ML BOTTLE TOP SCH (14:19)
[2018-06-21] MEDS: WARFARIN 5 MG TABLET PO SCH (19:20)
[2018-06-21] MEDS: ATORVASTATIN 40 MG TABLET PO SCH (21:52)
[2018-06-22 07:15] LABS: Basophils # 0.1 10*3/uL (0.0-0.2); Basophils % 0.8 % (0.0-0.8); Eosinophils # 0.2 10*3/uL (0.0-0.87); Eosinophils % 1.6 % (0.00-10.9); Hematocrit 26.1 VOL% (42.0-52.0); Hemoglobin 9.1 GM/DL (14.0-18.0); Immature Granulocytes % 8.9 %; Immature Granulocytes Absolute 1.04 #; Lymphocytes # 2.4 10*3/uL (1.4-4.0); Lymphocytes % 20.3 % (21.2-54.2); Mean Corpuscular HGB Conc 34.9 GM/DL (32-36); Mean Corpuscular Hemoglobin 29 PG (27-34); Mean Corpuscular Volume 82.6 FL (87-102); Mean Platelet Volume 12.5 FL (9.6-12.0); Monocytes # 1.2 10*3/uL (0.11-0.8); Monocytes % 9.9 % (1.7-12.7); Neutrophils # 6.8 10*3/uL (1.4-7.4); Neutrophils % 58.5 % (38.7-73.9); Platelet Count 234 T/CUMM (130-400); Red Blood Count 3.16 MC/CUMM (3.8-5.5); Red Cell Distribution Width 15.2 % (9.3-17.3); White Blood Count 11.6 T/CUMM (4-12)
[2018-06-22 07:37] LABS: Band Neutrophils 3 % (0-10); Eosinophils 3 % (0-10); Giant Platelets Few; Hypochromasia 1+; Lymphocytes 23 % (20-55); Myelocytes 1 %; Platelet Estimate Adequate; Segmented Neutrophils 65 % (50-85); Total Cells Counted 100
[2018-06-22 07:49] LABS: Calcium 8.1 MG/DL (8.5-10.1); Potassium 3.7 MMOL/L (3.5-5.1)
[2018-06-22 08:27] VITALS: BP 99/61
[2018-06-22] MEDS: HYDROmorphone 2 MG/1 ML VIAL IV PRN (09:10)
[2018-06-22] MEDS: CARVEDILOL 3.125 MG TABLET PO SCH (09:58)
[2018-06-22] MEDS: PANTOPRAZOLE 40 MG TABLET PO SCH (09:58)
[2018-06-22] MEDS: AMIODARONE 200 MG TABLET PO SCH (09:58)
[2018-06-22] MEDS: SODIUM HYPOCHLORITE 0.25% IRRIG 473 ML BOTTLE TOP SCH (09:58)
[2018-06-23] MEDS ORDERED: LISINOPRIL 2.5 MG TABLET PO SCH (09:00)
== END 2018-06-22 14:40 | disposition home or self-care (01) | DRG 580 ==
LOC: EDUNIT# → SUATTDRO → N.ED 01:57 → SUATTDRO 05:57 → N.EDINP 05:57 → N.2W 12:28 → N.5E 17:19
PROVIDERS: ADMIT Internal Medicine; ATTEND Internal Medicine